=== PATIENT | female | born 1950 | race Caucasian/White ===

== ENCOUNTER 2016-10-22 08:45 | Day surgery (SDC) | payer MEDICARE, OTHER ==
[~2016-10-22] VITALS: Ht 154.9 cm; Wt 93.9 kg
[~2016-10-22 08:45] MED LIST: ACIDOPHILUS100 M1 PO; ALL DAY ALLERGY10 M3 PO; ASPIR-LOW81 MG PO; CALCIUM CITRAT1 EAC3 PO; COQ1050 MG PO; DILT-XR120 MG PO; FISH OIL-OMEGA1 EACH PO; FLAX SEED OIL1000 MG PO; GLUCOSAMINE-CH1 EA17 PO; LUTEIN-ZEAXANT1 EACH PO; MAPAP325 MG PO; ONDANSETRON4 MG/2 M1 PO; OSTEO BI-FLEX1 EAC3 PO; OXYCODON-ACETA1 EAC2 PO; PRAVACHOL20 MG PO; PROVENTIL HFA6.7 GM INH; SUPER B COMPLE150 MG PO; TIROSINT100 MCG PO; [UNRECOGNIZED DRUG - OTHER] PO
--- NOTE | 2016-10-22 10:11 | NUR ---
10/22/16 1011 Kwabena Coats PT TALKING AND PASSING SMALL AMOUNTS OF GAS
== END 2016-10-22 10:51 | disposition home or self-care (01) ==
LOC: DS 08:45 → OPS 08:45 → DS 10:00 → OPS 10:00
PROVIDERS: Surgery
PROC: 0DBN8ZX Excision of Sigmoid Colon, Via Natural or Artificial Opening Endoscopic, Diagnostic (ICD-10-PCS; principal; 2016-10-22 10:00)
DX: K63.5 Polyp of colon (principal); K64.8 Other hemorrhoids; I10 Essential (primary) hypertension; E03.9 Hypothyroidism, unspecified; M81.0 Age-related osteoporosis without current pathological fracture; Z88.1 Allergy status to other antibiotic agents; Z88.2 Allergy status to sulfonamides; Z88.8 Allergy status to other drugs, medicaments and biological substances; Z95.3 Presence of xenogenic heart valve; Z90.89 Acquired absence of other organs; Z90.710 Acquired absence of both cervix and uterus; Z90.12 Acquired absence of left breast and nipple; Z90.49 Acquired absence of other specified parts of digestive tract; Z98.890 Other specified postprocedural states; Z79.899 Other long term (current) drug therapy
CPT/HCPCS: 88305; 99152; 99153; J2250; J3010; J7120

== ENCOUNTER 2023-11-10 11:50 | Day surgery (SDC) | payer MEDICARE, OTHER ==
[~2023-11-10] VITALS: Ht 157.5 cm; Wt 96.4 kg
[~2023-11-10 11:50] MED LIST changes: +CEFAZOLIN SODIUM 2 GM/20 ML SYR IV SCH; +IBLOOD GLUCOSE TEST STRIP 1 EA TEST VI PRN; +LACTATED RINGER'S 1,000 ML IV SCH; +LIDOCAINE HCL 1% 5 ML SDV INJ ONE; +MIDAZOLAM HCL 5 MG/5 ML VIAL IV PRN; +fentaNYL citrate 100 MCG/2 ML VIAL IV PRN
[2023-11-10 12:08] VITALS: BP 168/95
[2023-11-10 12:11] VITALS: BP 168/95
[2023-11-10] MEDS ORDERED: LOSARTAN POTAS100 MG PO (12:20)
[2023-11-10] MEDS ORDERED: SIMVASTATIN40 MG PO (12:20)
[2023-11-10] MEDS ORDERED: fentaNYL citrate 100 MCG/2 ML VIAL ONE (13:20)
[2023-11-10] MEDS ORDERED: MIDAZOLAM HCL 5 MG/5 ML VIAL ONE (13:20)
[2023-11-10] MEDS ORDERED: CEFAZOLIN SODIUM 2 GM/20 ML SYR ONE (13:33)
[2023-11-10] MEDS ORDERED: ondansetron HCL 4 MG/2 ML VIAL ONE (13:44)
--- NOTE | 2023-11-10 14:30 | NUR ---
11/10/23 1430 Rupa Zamarripa 1410- PT PRESENTS TO PACU, LEFT LATERAL POSITION, DROWSY BUT AWAKE AND ANSWERING QUESTIONS. LR INFUSING TO RH IV. ABD ROUND, FIRM, ENCOURAGED TO PASS GAS. OXYMASK WITH 6L O2, BREATHING EVEN AND NON LABORED. ALL MONITORS IN PLACE. 1421- PT MOVED TO ROOM AIR AT THIS TIME. REPORTS SOME CRAMPING, PASSING GAS. ABD IS GETTING LESS FIRM.
[2023-11-10 14:47] VITALS: BP 144/70
--- NOTE | 2023-11-13 13:47 | OR ---
[facility] [address], [place] [address] Signed DATE OF OPERATION: 11/10/2023 SURGEON: Ziggy Shafer MD PREOPERATIVE DIAGNOSES: 1. Colon screening. 2. Family history of colon cancer (father). POSTOPERATIVE DIAGNOSIS: Normal colon to cecum. PROCEDURE: Total colonoscopy to cecum. ANESTHESIA: Intravenous sedation; fentanyl 100 mcg and Versed 4 mg, and preoperative treatment Zofran 4 mg. INDICATION: This 73-year-old white woman is a patient of KAN Avery. The patient lives in [place], [place]. She last underwent colonoscopy in 2016, which showed internal hemorrhoidal changes and a hyperplastic polyp in the rectosigmoid. She does have some constipation, having bowel movement every three days. She has family history of colon cancer in her father. She has no current symptoms of bleeding, diarrhea, or constipation. She is admitted at this time to undergo colonoscopy. She understands the risk of bleeding, infection, and perforation. FINDINGS: The prep was quite good, though the cecum and proximal ascending colon did require some irrigation. Complete evaluation was undertaken throughout the colon showing no sign of polyps, diverticular formation, colitis, or cancer. There were some internal hemorrhoidal changes. DESCRIPTION OF PROCEDURE: The patient was brought to the endoscopy suite and placed in the lateral decubitus position, given intravenous sedation to the point of slurred speech and nystagmus. Digital rectal examination was normal. An Olympus video colonoscope was passed in the rectum and manipulated throughout the colon ultimately intubating the cecum itself. The prep was quite notably good except at Electronically Signed By: ZIGGY SHAFER MD 11/13/23 1347 PATIENT NAME: GARTH BYRNE OPERATIVE REPORT DATE OF : 48 REPORT #: [id number] PHYSICIAN: ZIGGY SHAFER MD PCP: GAY LUCAS REPORT IS CONFIDENTIAL AND NOT TO BE RELEASED WITHOUT AUTHORIZATION [facility] [address] [place] [id number] Signed the cecum where there was some gelatinous adherent stool which required a fair amount of irrigation. Once adequately able to be examined, the scope was then carefully withdrawn and examination throughout showed no sign of abnormality, specifically no polyps, diverticular formation, colitis, or cancer. Retroflexed view of the rectum showed some internal hemorrhoidal changes. Scope was removed and the patient was taken to the recovery room in good condition. CONCLUDING DIAGNOSIS: Normal colon to cecum. PLAN: Recommend repeat colonoscopy in 5 years, sooner if symptoms should develop. She will return to the ongoing care of Gay OMER. MD FARHAN Barr/BRAULIOL /[id number] cc: KAN Avery Copies: GAY LUCAS ~ Electronically Signed By: ZIGGY SHAFER MD 11/13/23 1347 PATIENT NAME: GARTH BYRNE OPERATIVE REPORT DATE OF : 48 REPORT #: [id number] PHYSICIAN: ZIGGY SHAFER MD PCP: GAY LUCAS REPORT IS CONFIDENTIAL AND NOT TO BE RELEASED WITHOUT AUTHORIZATION
== END 2023-11-10 15:00 | disposition home or self-care (01) ==
LOC: DS 11:50 → OPS 11:50 → DS 13:00 → OPS 15:00
PROVIDERS: ATTEND Surgery
PROC: 0DJD8ZZ Inspection of Lower Intestinal Tract, Via Natural or Artificial Opening Endoscopic (ICD-10-PCS; principal; 2023-11-10 13:00)
DX: Z12.11 Encounter for screening for malignant neoplasm of colon (principal); I10 Essential (primary) hypertension; E03.9 Hypothyroidism, unspecified; J45.909 Unspecified asthma, uncomplicated; Z87.19 Personal history of other diseases of the digestive system; Z80.0 Family history of malignant neoplasm of digestive organs; Z85.3 Personal history of malignant neoplasm of breast
CPT/HCPCS: G0105; 99153; G0500; J0690; J2250; J2405; J3010; J7121